=== PATIENT | female | born 1945 | race Two or more races ===

== ENCOUNTER 2023-08-29 13:53 | Emergency (ER) | payer OTHER ==
[~2023-08-29] VITALS: Ht 147.3 cm; Wt 47.5 kg
[2023-08-29 14:10] VITALS: BP 140/78; PULSE 74; RESP 16; O2SAT 95
[2023-08-29] MEDS ORDERED: ACET500T58 PO (16:02)
[2023-08-29] MEDS ORDERED: IBUP1TAB5 PO (16:02)
== END 2023-08-29 17:51 | disposition home or self-care (01) ==
LOC: ER 13:53
DX: M47.816 Spondylosis without myelopathy or radiculopathy, lumbar region (principal); M54.42 Lumbago with sciatica, left side
CPT/HCPCS: 72100; 93971